=== PATIENT | female | born 1970 | race Caucasian/White ===

== ENCOUNTER 2018-10-02 14:43 | Outpatient (CLI) | payer BC ==
--- NOTE | 2018-10-02 17:44 | ULT ---
RIGHT BREAST ULTRASOUND: Comparison: Mammogram 09-11-18 History: Mass seen on mammogram in the 3 o'clock position of the right breast. Patient was called rachid k to ultrasound only, for further evaluation as a tomosynthesis was done at an outside institution. Technique: Multiplanar grayscale and color doppler images were obtained in a target ultrasound of the right breast. FINDINGS: At the 3 o'clock position of the right breast there is a lobulated anechoic cyst measuring 1.2 cm in greatest dimension. No suspicious mass or shadowing are seen. IMPRESSION: BIRADS category 2 - benign findings. Annual screening mammography is recommended. POS: [facility]
== END 2018-10-02 14:44 | disposition home or self-care (01) ==
LOC: BICULT 14:43
PROVIDERS: ATTEND Obstetrics & Gynecology
DX: N63.12 Unspecified lump in the right breast, upper inner quadrant (principal)